=== PATIENT | male | born 2000 | race Caucasian/White ===

== ENCOUNTER 2019-07-27 07:19 | Emergency (ER) | payer MEDICAID ==
[2019-07-27] MEDS ORDERED: IPRATROPIUM/ALBUTEROL 0.5-2.5 MG/3 ML AMPUL NEB ONE (07:47)
[2019-07-27] MEDS ORDERED: PREDNISONE 20 MG TABLET PO ONE (07:48)
--- NOTE | 2019-07-27 07:52 | ER Document Report ---
ED Respiratory Problem - General Chief Complaint: Cough Stated Complaint: COUGH/CONGESTION/SORE THROAT Time Seen by Provider: 07/27/19 07:41 Primary Care Provider: OMER LOPEZ, RESTRICTIVE PREPARATION OPERATOR [NURSE PRACTITIONER] - Follow up as needed Notes: 18-year-old male presents to the ER complaining of cough wheezing and some difficulty breathing. Patient complains subjective fever and chills starting this morning. States is been coughing up some thick yellow sputum. Denies nausea vomiting diarrhea denies dizziness. Denies chest pain. Denies abdominal pain. Patient states the coughing is severe his throat is sore. He has runny nose and congestion states his throat is burning hurts worse when he swallows. Rates that pain is severe TRAVEL OUTSIDE OF THE [place] IN LAST 30 DAYS: No - Related Data Allergies/Adverse Reactions: No Known Allergies Allergy (Verified 07/27/19 07:30) Past Medical History - Social History Smoking Status: Current Every Day Smoker Chew tobacco use (# tins/day): No Frequency of alcohol use: None Drug Abuse: None Family History: Reviewed & Not Pertinent Patient has suicidal ideation: No Patient has homicidal ideation: No Pulmonary Medical History: Reports: Hx Asthma - Immunizations Immunizations up to date: Yes Hx Diphtheria, Pertussis, Tetanus Vaccination: No Review of Systems - Review of Systems Constitutional: Chills, Fever EENT: Nose congestion, Throat pain Cardiovascular: No symptoms reported Respiratory: Cough, Short of breath, Wheezing Gastrointestinal: denies: Diarrhea, Nausea, Vomiting Neurological/Psychological: denies: Headaches -: Yes All other systems reviewed and negative Physical Exam - Vital signs Vitals: Temp Pulse Resp BP Pulse Ox 98.5 F 100 H 20 130/76 H 89 L 07/27/19 07:30 07/27/19 07:30 07/27/19 07:30 07/27/19 07:30 07/27/19 07:30 - Notes Notes: GENERAL_APPEARANCE: well_nourished, alert, cooperative, no_acute_distress, no_obvious_discomfort. VITALS: reviewed, see vital signs table. HEAD: no_swelling\tenderness on the head. EYES: PERRL, EOMI, conjunctiva_clear. NOSE: Clear_nasal_discharge. MOUTH: (-)decreased moisture. THROAT: Mild_tonsilar_inflammation, no_airway_obstruction. no_lymphadenopathy NECK: supple, no_neck_tenderness, (-)thyromegaly. BACK: no_back_tenderness. CHEST_WALL: no_chest_tenderness. LUNGS: Scattered_wheezing, no_rales, no_rhonchi, (-)accessory muscle use, good air exchange bilateral. HEART: normal_rate, normal_rhythm, normal_S1, normal_S2, (-)S3, (-)S4, no_murmur, no_rub. ABDOMEN: normal_BS, soft, no_abd_tenderness, (-)guarding, (-)rebound, no_organomegaly, no_abd_masses. EXTREMITIES: good pulses in all_extremities, no_swelling\tenderness in the extremities, no_edema. SKIN: warm, dry, good_color, no_rash. MENTAL_STATUS: speech_clear, oriented_X_3, normal_affect, responds_appropriately to questions. NEURO: Neg Motor or Sensory Deficits on exam, CN 2-12 intact, DTR 2+ symmetric x 4, No cerbellar signs Course - Re-evaluation Re-evalutation: 07/27/19 07:51 89-year-old male presents with fever sore throat wheezing. Patient will be given aerosol treatments here dose of prednisone. Will swab for flu and strep. We will get a chest x-ray to assess for pneumonia. Patient looks stable well- hydrated nontoxic. 07/27/19 08:51 Chest x-ray did not show any obvious pneumonia though the patient may have early bronchopneumonia. The patient will be given prescriptions for inhaler, steroids and Z-Earnest. The patient follow-up with her primary care doctor. Patient looks well now has no oxygen requirements after aerosol treatments. States she is feeling better. Flu swabs are negative. Strep negative - Vital Signs Vital signs: Temp Pulse Resp BP Pulse Ox 98.5 F 100 H 20 130/76 H 95 07/27/19 07:30 07/27/19 07:30 07/27/19 07:30 07/27/19 07:30 07/27/19 08:29 - Diagnostic Test Radiology reviewed: Reports reviewed Radiology results interpreted by me: 07/27/19 08:51 Chest X-Ray 07/27/19 07:47 IMPRESSION: NO ACUTE RADIOGRAPHIC FINDING IN THE CHEST. Discharge - Discharge Clinical Impression: Bronchopneumonia Condition: Good Disposition: HOME, SELF-CARE Instructions: Bronchitis With Bronchospasm (Wheezing) ([facility]) Prescriptions: Benzonatate [Tessalon Perles 100 mg Capsule] 100 mg PO Q8HP PRN #40 capsule PRN Reason: Cough Prednisone [Deltasone 20 mg Tablet] 3 tab PO DAILY 5 Days tablet Albuterol Sulfate [Proair HFA Inhalation Aerosol 8.5 gm MDI] 2 puff IH Q4H PRN #1 mdi PRN Reason: Azithromycin [Zithromax 250 mg Tablet] 250 mg PO ASDIR PRN #6 tablet PRN Reason: Referrals: OMER LOPEZ, RESTRICTIVE PREPARATION OPERATOR [NURSE PRACTITIONER] - Follow up as needed
--- NOTE | 2019-07-27 08:21 | RADIOLOGY REPORT (SQ) ---
EXAM DESCRIPTION: CHEST 2 VIEWS COMPLETED DATE/TIME: 07/27/2019 8:09 am REASON FOR STUDY: cough fever COMPARISON: None. EXAM PARAMETERS: NUMBER OF VIEWS: two views TECHNIQUE: Digital Frontal and Lateral radiographic views of the chest acquired. RADIATION DOSE: NA LIMITATIONS: none FINDINGS: LUNGS AND PLEURA: No opacities, masses or pneumothorax. No pleural effusion. MEDIASTINUM AND HILAR STRUCTURES: No masses or contour abnormalities. HEART AND VASCULAR STRUCTURES: Heart normal size. No evidence for failure. BONES: No acute findings. HARDWARE: None in the chest. OTHER: No other significant finding. IMPRESSION: NO ACUTE RADIOGRAPHIC FINDING IN THE CHEST. TECHNICAL DOCUMENTATION: JOB ID: [id number] [employer]- All Rights Reserved Reading location - IP/workstation name: [email or web address]
[2019-07-27 08:32] LABS: A TYPE INFLUENZA AG NEGATIVE (NEGATIVE); B INFLUENZA AG NEGATIVE (NEGATIVE)
[2019-07-27 09:16] VITALS: BP 120/32
== END 2019-07-27 09:16 | disposition home or self-care (01) ==
LOC: ER 07:19
DX: J18.0 Bronchopneumonia, unspecified organism (principal); R05 Cough; R09.81 Nasal congestion; J02.9 Acute pharyngitis, unspecified; F17.200 Nicotine dependence, unspecified, uncomplicated
CPT/HCPCS: 87070; 87880; 87804; 71046; J7512; J7620; 94640; 99283